=== PATIENT | female | born 1980 | race Caucasian/White ===

== ENCOUNTER 2016-12-11 05:45 | Emergency (ER) | payer OTHER ==
[~2016-12-11] VITALS: Ht 160 cm; Wt 78.6 kg
[2016-12-11 05:58] VITALS: BP 121/71
--- NOTE | 2016-12-11 06:05 | NUR ---
Tod wright in [facility] - 12/11/16 at [address] Issa evaluating patient at bedside.
--- NOTE | 2016-12-11 06:05 | NUR ---
PT TAKEN TO BED 4
--- NOTE | 2016-12-11 06:10 | NUR ---
Dr. Issa evaluating patient at bedside.
--- NOTE | 2016-12-11 06:10 | NUR ---
PATIENT PRESENTS TO ED WITH RIGHT FLANK PAIN AND BURNING DURING URINATION X 1 WEEK . PT STATES SHE HAS A STENT IN PLACE FOR HER CERVICAL CANCER AND HX OF KIDNEY STONES AND HEP C. PT DENIES N/V/D; SKIN IS PINK/WARM/DRY; AAOX4 WITH EVEN AND STEADY GAIT; LUNGS CLEAR BL; HR EVEN AND REGULAR; PT DENIES ANY FEVER, CP, SOB, OR COUGH AT THIS TIME; PATIENT STATES PAIN OF 8/10 AT THIS TIME; VSS; PATIENT POSITIONED FOR COMFORT; HOB ELEVATED; BEDRAILS UP X2; BED DOWN. ER MD MADE AWARE OF PT STATUS.
[2016-12-11] MEDS ORDERED: NACL 0.9% 1,000 ML IV ONE (06:15)
[2016-12-11] MEDS ORDERED: KETOROLAC 30 MG/ML VIAL IVP ONE (06:15)
[2016-12-11] MEDS ORDERED: LEVOFLOXACIN 750 MG/D5W PREMIX 150 ML IV ONE (06:15)
[2016-12-11 06:34] LABS: BASOPHILS # (AUTO) 0.1 K/uL (0.00-0.22); BASOPHILS % (AUTO) 0.6 % (0.0-2.0); EOSINOPHILS # (AUTO) 0.3 K/uL (0-0.4); EOSINOPHILS % (AUTO) 3.7 % (0.0-4.0); HEMATOCRIT 38.9 % (36-48); HEMOGLOBIN 13.5 g/dL (12.0-16.0); LYMPHOCYTES # (AUTO) 1.4 K/uL (2.5-16.5); LYMPHOCYTES % (AUTO) 16.1 % (20.5-51.1); MEAN CORPUSCULAR HEMOGLOBIN 32 pg (27-31); MEAN CORPUSCULAR HGB CONC 35 g/dL (33-37); MEAN CORPUSCULAR VOLUME 92 fL (80-94); MONOCYTES # (AUTO) 0.5 K/uL (0.8-1.0); MONOCYTES % (AUTO) 5.8 % (1.7-9.3); NEUTROPHILS # (AUTO) 6.2 K/uL (1.8-7.7); NEUTROPHILS % (AUTO) 73.8 % (42.2-75.2); PLATELET COUNT (AUTO) 208 K/uL (140-450); RED BLOOD CELL COUNT(AUTO) 4.24 MIL/uL (4.20-5.40); RED CELL DISTRIBUTION WIDTH 12.6 % (11.6-13.7); WHITE BLOOD COUNT (AUTO) 8.5 K/uL (4.8-10.8)
[2016-12-11 06:45] LABS: CALCIUM 8.5 mg/dL (8.5-10.1); CREATININE 0.8 mg/dL (0.6-1.3)
--- NOTE | 2016-12-11 06:46 | NUR ---
PT TAKEN TO CT
[2016-12-11 06:51] LABS: ALBUMIN 3.4 g/dL (3.4-5.0); TOTAL BILIRUBIN 0.9 mg/dL (0.0-1.0); TOTAL PROTEIN, SERUM 7.4 g/dL (6.4-8.2)
--- NOTE | 2016-12-11 07:06 | NUR ---
RECEIVED REPORT FROM JUANITO KURTZ.Patient appears to be resting comfortably in bed. Vital Signs within normal limits. Respirations even and unlabored.WILL CONTINUE TO MONITOR
--- NOTE | 2016-12-11 07:07 | NUR ---
Pt report given to DOMENIC SOLOMON. Transfer of care at this time.
--- NOTE | 2016-12-11 07:50 | NUR ---
IV removed, catheter intact and site benign. Applied folded 4x4 gauze and tape to stop bleeding.
[2016-12-11 08:00] VITALS: BP 121/79
--- NOTE | 2016-12-11 08:00 | NUR ---
Patient discharged with v/s stable. Written and verbal after care instructions given and explained. Patient alert, oriented and verbalized understanding of instructions. Ambulatory with steady gait. All questions addressed prior to discharge. ID band removed. Patient advised to follow up with PMD. Rx of NORCO & CIPRO given. Patient educated on indication of medication including possible reaction and side effects. Opportunity to ask questions provided and answered.
[2016-12-11 08:49] LABS: APPEARANCE,URINE SL CLOUDY (CLEAR); BILIRUBIN,URINE NEGATIVE (NEGATIVE); COLOR,URINE YELLOW (YELLOW); LEUKOCYTE ESTERASE ,URINE 2+ (NEGATIVE); NITRITE, URINE POSITIVE (NEGATIVE); PROTEIN,URINE 2+ (NEGATIVE); UGLUCOSE NEGATIVE (NEGATIVE); UROBILINOGEN,URINE 0.2 EU/dL (0.2 - 1)
[2016-12-11 08:56] LABS: BACTERIA,URINE 1+ /HPF (None Seen); SQUAMOUS EPITHELIAL CELL,UR 0-3 (FEW) /LPF (0-3 (FEW))
[2016-12-11 08:57] LABS: BLOOD, URINE 2+ (NEGATIVE)
== END 2016-12-11 08:00 | disposition home or self-care (01) ==
LOC: MED 05:45
DX: N39.0 Urinary tract infection, site not specified (principal); F17.200 Nicotine dependence, unspecified, uncomplicated; Z85.43 Personal history of malignant neoplasm of ovary; Z86.19 Personal history of other infectious and parasitic diseases; Z90.710 Acquired absence of both cervix and uterus; Z88.5 Allergy status to narcotic agent
CPT/HCPCS: 36415; 74176; 80053; 81001; 81025; 85025; 87086; 87186; 96365; 96375; 99285; J1885; J1956; J7030

== ENCOUNTER 2019-06-20 15:07 | Emergency (ER) | payer OTHER ==
[~2019-06-20] VITALS: Ht 160 cm; Wt 79.4 kg
[2019-06-20 15:09] VITALS: BP 142/77
--- NOTE | 2019-06-20 15:16 | NUR ---
PT ARRIVED TO ED C/O GRIFFIN, DIZZNIESS,BLURRY VISION,NAUSEA, VOMITTING X 6 DAYS. PT DENIES ANY HEAD INJURY OR FALL OR TRUAMA. 2MM PERRLA. RATES PAIN 10/10 AND DESCRIBES IT PRESSURE. VSS. NO BUMPS NOTED AROUND THE HEAD. PT ALSO STATES WHEN SHE STANDS SHE GETS DIZZY. PATIENT POSITIONED FOR COMFORT; HOB ELEVATED; BEDRAILS UP X1; BED DOWN. ER MD MADE AWARE OF PT STATUS. ALLERGIES: CODEINE PMH: VERTIGO, MIGRANE.
--- NOTE | 2019-06-20 15:16 | NUR ---
PATIENT AMBULATED TO BED 11.
[2019-06-20] MEDS ORDERED: PROCHLORPERAZINE 10 MG/2 ML VIAL IM ONE (15:45)
[2019-06-20] MEDS ORDERED: KETOROLAC 60 MG/2 ML VIAL IM ONE (15:45)
[2019-06-20] MEDS ORDERED: MORPHINE SULFATE 4 MG/ML SYR IM ONE (17:30)
[2019-06-20] MEDS ORDERED: ONDANSETRON 4 MG ODT PO ONE (17:30)
--- NOTE | 2019-06-20 17:43 | NUR ---
C/O 04/08 FRONTAL LOBE AND LOWER OCCIPITAL AREA PRESSURE PAIN WITH NAUSEA---PT COVERING EYES WITH HAND. LIGHTS OFF IN ROOM ; MEDICATED WRITTEN WILL CONTINUE TO OBSERVE FOR PAIN/ NAUSEA CONTROL.
--- NOTE | 2019-06-20 18:36 | NUR ---
PA AT BEDSIDE.
--- NOTE | 2019-06-20 18:50 | NUR ---
Patient discharged with v/s stable. Written and verbal after care instructions given and explained. Patient alert, oriented and verbalized understanding of instructions. Ambulatory with steady gait. All questions addressed prior to discharge. ID band removed. Patient advised to follow up with PMD. Rx of IMMITREX, COMPAZINE given. Patient educated on indication of medication including possible reaction and side effects. Opportunity to ask questions provided and answered.
[2019-06-20 18:51] VITALS: BP 131/92
== END 2019-06-20 18:50 | disposition home or self-care (01) ==
LOC: MED 15:07
DX: G43.909 Migraine, unspecified, not intractable, without status migrainosus (principal); R42 Dizziness and giddiness; R03.0 Elevated blood-pressure reading, without diagnosis of hypertension; Z98.890 Other specified postprocedural states; Z90.710 Acquired absence of both cervix and uterus; Z85.43 Personal history of malignant neoplasm of ovary; Z88.5 Allergy status to narcotic agent
CPT/HCPCS: 81025; 96372; 99283; J0780; J1885; J2270; Q0162